=== PATIENT | male | born 1985 ===

== ENCOUNTER 2021-12-01 00:10 | Emergency (ER) | payer BC ==
[2021-12-01] MEDS ORDERED: Nitroglycerin 0.4 MG Tab.SL ONE (00:22)
[2021-12-01] MEDS ORDERED: Aspirin 81 MG Tab.EC ONE (00:22)
== END 2021-12-01 06:00 | disposition home or self-care (01) ==
LOC: LB.ED 00:10
DX: R07.9 Chest pain, unspecified (principal); Z87.891 Personal history of nicotine dependence
CPT/HCPCS: 36415; 71045; 80053; 84484; 85025; 85610; 93005; 99285; A9270